=== PATIENT | female | born 1975 | race Native Hawaiian/Other Pacific Islander ===

== ENCOUNTER 2019-09-08 16:36 | Emergency (ER) | payer OTHER ==
[~2019-09-08] VITALS: Ht 147.3 cm; Wt 59.9 kg
[2019-09-08 17:12] LABS: PLATELET COUNT 176 K/uL (152-353)
[2019-09-08 17:19] LABS: POTASSIUM 3.9 mmol/L (3.6-5.2)
[2019-09-08 17:27] LABS: PARTIAL THROMBOPLASTIN TIME 25.9 SECONDS (24.5-33.6)
[2019-09-08 20:48] VITALS: BP 144/89; TEMP 98.3
== END 2019-09-08 20:48 | disposition home or self-care (01) ==
LOC: ED 16:36
PROVIDERS: Emergency Medicine
DX: N92.0 Excessive and frequent menstruation with regular cycle (principal); E11.65 Type 2 diabetes mellitus with hyperglycemia
CPT/HCPCS: 80053; 81000; 81002; 81025; 82962; 85027; 85610; 85730; 96360; 96375; 96376; 99284; J1815

== ENCOUNTER 2019-09-16 11:25 | Outpatient (CLI) | payer OTHER ==
[2019-09-16 12:06] LABS: PLATELET COUNT 223 K/uL (152-353)
[2019-09-16 12:47] LABS: POTASSIUM 4.4 mmol/L (3.6-5.2)
== END 2019-09-16 21:38 | disposition home or self-care (01) ==
LOC: LABW 11:25
PROVIDERS: Family Medicine
DX: E11.9 Type 2 diabetes mellitus without complications (principal); I10 Essential (primary) hypertension; K21.9 Gastro-esophageal reflux disease without esophagitis; F41.8 Other specified anxiety disorders; N28.89 Other specified disorders of kidney and ureter; E78.00 Pure hypercholesterolemia, unspecified; E83.42 Hypomagnesemia
CPT/HCPCS: 36415; 80053; 80061; 81000; 82306; 83036; 83735; 84439; 84443; 84550; 85027

== ENCOUNTER 2019-10-21 11:43 | Outpatient (CLI) | payer OTHER | END 2019-10-21 19:20 | disposition home or self-care (01) | LOC: LAB 11:43 | DX: Z20.828 Contact with and (suspected) exposure to other viral communicable diseases (principal) | CPT/HCPCS: 87635; G2023; U00003 ==

== ENCOUNTER 2019-12-04 14:55 | Emergency (ER) | payer OTHER ==
[~2019-12-04] VITALS: Ht 147.3 cm; Wt 59.9 kg
[2019-12-04 15:05] VITALS: TEMP 99.8
[2019-12-04 16:05] VITALS: BP 121/78
== END 2019-12-04 16:08 | disposition home or self-care (01) ==
LOC: ED 14:55
DX: J06.9 Acute upper respiratory infection, unspecified (principal)
CPT/HCPCS: 87502; 87651; 99283

== ENCOUNTER 2020-01-18 09:02 | Outpatient (CLI) | payer OTHER ==
[2020-01-18 09:50] LABS: PLATELET COUNT 216 K/uL (152-353)
[2020-01-18 10:18] LABS: POTASSIUM 4.5 mmol/L (3.6-5.2)
== END 2020-01-18 20:14 | disposition home or self-care (01) ==
LOC: RAD 09:02
PROVIDERS: Family Medicine
DX: Z01.818 Encounter for other preprocedural examination (principal); E11.9 Type 2 diabetes mellitus without complications; I10 Essential (primary) hypertension; N28.89 Other specified disorders of kidney and ureter; E78.00 Pure hypercholesterolemia, unspecified; E83.42 Hypomagnesemia; K21.9 Gastro-esophageal reflux disease without esophagitis; L30.8 Other specified dermatitis
CPT/HCPCS: 36415; 80053; 80061; 81000; 83036; 83735; 84439; 84443; 85027; 93005

== ENCOUNTER 2020-05-19 10:16 | Outpatient (CLI) | payer OTHER ==
[2020-05-19 10:47] LABS: PLATELET COUNT 239 K/uL (152-353)
[2020-05-19 11:25] LABS: POTASSIUM 3.8 mmol/L (3.6-5.2)
== END 2020-05-19 20:55 | disposition home or self-care (01) ==
LOC: LABW 10:16
PROVIDERS: ATTEND Family Medicine
DX: E11.65 Type 2 diabetes mellitus with hyperglycemia (principal); I10 Essential (primary) hypertension; E78.1 Pure hyperglyceridemia; E83.42 Hypomagnesemia; N28.89 Other specified disorders of kidney and ureter; F41.9 Anxiety disorder, unspecified; K21.9 Gastro-esophageal reflux disease without esophagitis
CPT/HCPCS: 36415; 80053; 80061; 81000; 82306; 83036; 83735; 84439; 84443; 85027

== ENCOUNTER 2020-09-23 18:37 | Emergency (ER) | payer OTHER ==
[~2020-09-23] VITALS: Ht 147.3 cm; Wt 64.0 kg
[2020-09-23 19:44] VITALS: BP 182/88; TEMP 98.3
== END 2020-09-23 19:42 | disposition home or self-care (01) ==
LOC: ED 18:37
DX: L02.11 Cutaneous abscess of neck (principal); S10.86XA Insect bite of other specified part of neck, initial encounter; W57.XXXA Bitten or stung by nonvenomous insect and other nonvenomous arthropods, initial encounter; Y92.89 Other specified places as the place of occurrence of the external cause
CPT/HCPCS: 99283

== ENCOUNTER 2020-10-02 19:13 | Emergency (ER) | payer OTHER ==
[~2020-10-02] VITALS: Ht 147.3 cm; Wt 64.0 kg
[2020-10-02 19:48] LABS: PLATELET COUNT 248 K/uL (152-353)
[2020-10-02 20:00] LABS: POTASSIUM 3.9 mmol/L (3.6-5.2); SODIUM 134 mmol/L (136-145)
[2020-10-02 21:50] VITALS: BP 140/86; TEMP 98
== END 2020-10-02 21:50 | disposition home or self-care (01) ==
LOC: ED 19:13
PROVIDERS: Emergency Medicine Emergency Medical Services
DX: I10 Essential (primary) hypertension (principal); G43.909 Migraine, unspecified, not intractable, without status migrainosus; F17.210 Nicotine dependence, cigarettes, uncomplicated
CPT/HCPCS: 36415; 80048; 83735; 84484; 85027; 93005; 96360; 96365; 99284; J3475

== ENCOUNTER 2020-10-11 10:30 | Outpatient (CLI) | payer OTHER ==
[2020-10-11 11:07] LABS: PLATELET COUNT 207 K/uL (152-353)
[2020-10-11 11:24] LABS: POTASSIUM 4.4 mmol/L (3.6-5.2)
== END 2020-10-11 19:44 | disposition home or self-care (01) ==
LOC: LABW 10:30
PROVIDERS: ATTEND Family Medicine
DX: Z01.818 Encounter for other preprocedural examination (principal); E11.65 Type 2 diabetes mellitus with hyperglycemia; I10 Essential (primary) hypertension
CPT/HCPCS: 36415; 80053; 81000; 82306; 83036; 83735; 84439; 84443; 85027

== ENCOUNTER 2020-10-19 16:37 | Emergency (ER) | payer OTHER ==
[~2020-10-19] VITALS: Ht 147.3 cm; Wt 63.5 kg
[2020-10-19 17:30] LABS: PLATELET COUNT 178 K/uL (152-353)
[2020-10-19 17:38] LABS: POTASSIUM 3.3 mmol/L (3.6-5.2)
[2020-10-19 19:00] VITALS: BP 133/87; TEMP 98.9
== END 2020-10-19 19:00 | disposition home or self-care (01) ==
LOC: ED 16:37
PROVIDERS: Emergency Medicine
DX: E87.6 Hypokalemia (principal); R11.2 Nausea with vomiting, unspecified; R19.7 Diarrhea, unspecified; R10.32 Left lower quadrant pain; E87.1 Hypo-osmolality and hyponatremia
CPT/HCPCS: 80053; 81000; 85027; 87651; 96360; 96372; 99284; J1885

== ENCOUNTER 2020-11-03 13:17 | Outpatient (CLI) | payer OTHER ==
[2020-11-03 14:04] LABS: PLATELET COUNT 181 K/uL (152-353)
[2020-11-03 14:19] LABS: POTASSIUM 4.2 mmol/L (3.6-5.2); SODIUM 134 mmol/L (136-145)
== END 2020-11-03 23:13 | disposition home or self-care (01) ==
LOC: RESP 13:17
PROVIDERS: ATTEND Family Medicine
DX: R07.89 Other chest pain (principal); E11.9 Type 2 diabetes mellitus without complications
CPT/HCPCS: 36415; 80053; 81000; 82550; 82553; 84439; 84443; 84484; 85027; 86140; 93005

== ENCOUNTER 2021-01-19 15:20 | Outpatient (CLI) | payer OTHER | END 2021-01-19 21:05 | disposition home or self-care (01) | LOC: LABW 15:20 | PROVIDERS: ATTEND Nurse Practitioner | DX: R07.89 Other chest pain (principal) | CPT/HCPCS: 36415; 85379 ==

== ENCOUNTER 2021-02-12 09:42 | Outpatient (CLI) | payer OTHER | END 2021-02-12 19:39 | disposition home or self-care (01) | LOC: RESP 09:42 | PROVIDERS: ATTEND Specialist | DX: Z01.810 Encounter for preprocedural cardiovascular examination (principal); R07.89 Other chest pain ==

== ENCOUNTER 2021-03-01 08:00 | Outpatient (CLI) | payer OTHER ==
[~2021-03-01] VITALS: Ht 147.3 cm; Wt 60.3 kg
== END 2021-03-01 18:48 | disposition home or self-care (01) ==
LOC: NM 08:00
PROVIDERS: ATTEND Specialist
DX: Z01.810 Encounter for preprocedural cardiovascular examination (principal); R07.89 Other chest pain
CPT/HCPCS: A9500; J2785

== ENCOUNTER 2021-03-11 17:07 | Emergency (ER) | payer OTHER ==
[~2021-03-11] VITALS: Ht 147.3 cm; Wt 60.3 kg
[2021-03-11 17:44] LABS: PLATELET COUNT 179 K/uL (152-353)
[2021-03-11 17:53] LABS: POTASSIUM 4.7 mmol/L (3.6-5.2)
[2021-03-11 21:55] VITALS: TEMP 97.8
[2021-03-11 22:00] VITALS: BP 116/71
== END 2021-03-11 22:20 | disposition home or self-care (01) ==
LOC: ED 17:07
PROVIDERS: Emergency Medicine Emergency Medical Services
DX: R07.89 Other chest pain (principal); I16.0 Hypertensive urgency
CPT/HCPCS: 80053; 84484; 85027; 93005; 96374; 96375; 99284; J0360; J1885; J2270; J3490

== ENCOUNTER 2021-03-22 12:17 | Outpatient (CLI) | payer OTHER ==
[2021-03-22 12:30] LABS: PLATELET COUNT 210 K/uL (152-353)
[2021-03-22 12:53] LABS: POTASSIUM 3.9 mmol/L (3.6-5.2)
== END 2021-03-22 18:46 | disposition home or self-care (01) ==
LOC: LABW 12:17
PROVIDERS: ATTEND Specialist
DX: Z01.810 Encounter for preprocedural cardiovascular examination (principal); R94.39 Abnormal result of other cardiovascular function study
CPT/HCPCS: 36415; 80048; 85027

== ENCOUNTER 2021-03-27 11:31 | Outpatient (CLI) | payer OTHER | END 2021-03-27 19:15 | disposition home or self-care (01) | LOC: LABW 11:31 | PROVIDERS: ATTEND Specialist | DX: Z01.810 Encounter for preprocedural cardiovascular examination (principal); D72.828 Other elevated white blood cell count; R82.998 Other abnormal findings in urine | CPT/HCPCS: 81000; 87086; 87088 ==

== ENCOUNTER 2021-05-15 14:04 | Emergency (ER) | payer OTHER ==
[~2021-05-15] VITALS: Ht 147.3 cm; Wt 60.3 kg
[2021-05-15 14:07] VITALS: TEMP 98.8
[2021-05-15 14:24] LABS: PLATELET COUNT 182 K/uL (152-353)
[2021-05-15 14:45] LABS: POTASSIUM 3.9 mmol/L (3.6-5.2)
[2021-05-15 14:51] LABS: PARTIAL THROMBOPLASTIN TIME 24.9 SECONDS (24.5-33.6)
[2021-05-15 17:00] VITALS: BP 155/91
== END 2021-05-15 17:00 | disposition home or self-care (01) ==
LOC: ED 14:04
PROVIDERS: Hospitalist
DX: J06.9 Acute upper respiratory infection, unspecified (principal); I16.0 Hypertensive urgency; R09.1 Pleurisy; Z20.822 Contact with and (suspected) exposure to COVID-19
CPT/HCPCS: 80053; 82550; 83880; 84484; 85027; 85610; 85730; 87502; 87635; 87651; 96360; 96375; 99284; J0360; J1100; J1815; J1885; J2405; U0003

== ENCOUNTER 2021-06-22 14:34 | Emergency (ER) | payer OTHER ==
[~2021-06-22] VITALS: Ht 147.3 cm; Wt 60.3 kg
[2021-06-22 16:14] VITALS: BP 157/100; TEMP 99.2
== END 2021-06-22 16:14 | disposition home or self-care (01) ==
LOC: ED 14:34
DX: M25.552 Pain in left hip (principal); M25.562 Pain in left knee; W01.0XXA Fall on same level from slipping, tripping and stumbling without subsequent striking against object, initial encounter; Y92.098 Other place in other non-institutional residence as the place of occurrence of the external cause
CPT/HCPCS: 96372; 99283; J1885

== ENCOUNTER 2021-08-10 17:52 | Emergency (ER) | payer OTHER ==
[~2021-08-10] VITALS: Ht 147.3 cm; Wt 60.3 kg
[2021-08-10 18:16] VITALS: BP 120/82; TEMP 98.7
== END 2021-08-10 18:16 | disposition home or self-care (01) ==
LOC: ED 17:52
DX: K05.10 Chronic gingivitis, plaque induced (principal); F17.210 Nicotine dependence, cigarettes, uncomplicated
CPT/HCPCS: 99282

== ENCOUNTER 2021-08-29 15:38 | Inpatient (IN) | payer OTHER ==
[~2021-08-29] VITALS: Ht 149.9 cm; Wt 62.3 kg
[2021-08-29] VITALS (7 sets, daily range): BP systolic 133–172; BP diastolic 75–98; TEMP 97.1–97.8; Ht 149.9 cm; Wt 62.3 kg
[2021-08-29 17:30] LABS: POTASSIUM 3.7 mmol/L (3.6-5.2)
[2021-08-29 17:50] LABS: PLATELET COUNT 183 K/uL (152-353)
[2021-08-30] VITALS: BP 125/78; TEMP 98.4
[2021-08-30 04:00] VITALS: BP 127/66; TEMP 98.1
[2021-08-30 08:15] LABS: PLATELET COUNT 198 K/uL (152-353)
[2021-08-30 08:21] VITALS: BP 162/84; TEMP 97.8
[2021-08-30 12:25] VITALS: BP 152/80; TEMP 98.7
[2021-08-30] MEDS ORDERED: MAGNESIUM OXID400 M3 PO (13:08)
[2021-08-30] MEDS ORDERED: ZESTRIL40 MG PO (13:10)
[2021-08-30] MEDS ORDERED: LIPITOR20 MG PO (13:10)
[2021-08-30 13:11] LABS: POTASSIUM 3.1 mmol/L (3.6-5.2); SODIUM 126 mmol/L (136-145)
[2021-08-30] MEDS ORDERED: PANTOPRAZOLE SO40 M1 PO (13:11)
[2021-08-30] MEDS ORDERED: FENOFIBRATE160 MG PO (13:12)
[2021-08-30] MEDS ORDERED: MEDROXYPROG150 MG/ML IM (13:13)
[2021-08-30] MEDS ORDERED: TRAZODONE HYDR100 MG PO (13:15)
[2021-08-30] MEDS ORDERED: ALL DAY ALLG10 MG PO (13:17)
[2021-08-30] MEDS ORDERED: DICLOFENAC SODIUM1 % TOP (13:17)
[2021-08-30] MEDS ORDERED: MELOXICAM7.5 MG PO (13:18)
[2021-08-30] MEDS ORDERED: ALBUTEROL108 MCG/AC INH (13:19)
[2021-08-30] MEDS ORDERED: FLUTICASON50 MCG/AC1 INH (13:21)
[2021-08-30] MEDS ORDERED: CLOPIDOGREL75 MG PO (13:21)
[2021-08-30] MEDS ORDERED: AMLODIPINE PO (13:22)
[2021-08-30] MEDS ORDERED: PROPRANOLOL HCL40 MG PO (13:23)
[2021-08-30] MEDS ORDERED: HUMULIN 70/30 K1 INJ SC (13:24)
[2021-08-30] MEDS ORDERED: SERTRALINE HYDR50 MG PO (13:25)
[2021-08-30] MEDS ORDERED: CLONIDINE HYDR0.1 M2 PO (13:27)
[2021-08-30 16:00] VITALS: BP 143/80; TEMP 98.2
[2021-08-30 20:00] VITALS: BP 130/885; TEMP 98.8
[2021-08-31] VITALS (7 sets, daily range): BP systolic 135–159; BP diastolic 79–91; TEMP 97.6–98.3
[2021-08-31 05:24] LABS: POTASSIUM 3.4 mmol/L (3.6-5.2)
[2021-08-31 11:23] LABS: POTASSIUM 3.6 mmol/L (3.6-5.2)
[2021-09-01 02:41] LABS: POTASSIUM 4.2 mmol/L (3.6-5.2)
[2021-09-01 04:00] VITALS: BP 155/86; TEMP 98.2
[2021-09-01 05:20] LABS: POTASSIUM 4.5 mmol/L (3.6-5.2)
[2021-09-01 05:47] LABS: PLATELET COUNT 151 K/uL (152-353)
[2021-09-01 08:00] VITALS: BP 177/106; TEMP 98.6
[2021-09-01 12:00] VITALS: BP 164/88; TEMP 99.2
[2021-09-01 16:00] VITALS: BP 151/90; TEMP 99.1
[2021-09-01 20:00] VITALS: BP 141/83; TEMP 98.8
[2021-09-02] VITALS: BP 116/73; TEMP 97.4
[2021-09-02 04:00] VITALS: BP 125/91; TEMP 98.1
[2021-09-02 05:49] LABS: PLATELET COUNT 148 K/uL (152-353)
[2021-09-02 06:31] LABS: POTASSIUM 4.2 mmol/L (3.6-5.2)
[2021-09-02 08:00] VITALS: BP 170/74; TEMP 98.4
[2021-09-02 12:00] VITALS: BP 145/81; TEMP 98.1
[2021-09-02 16:00] VITALS: BP 136/72; TEMP 98.3
[2021-09-02 20:00] VITALS: BP 150/81; TEMP 98.1
[2021-09-03 00:09] VITALS: BP 110/65; TEMP 97.8
[2021-09-03 04:26] VITALS: BP 146/71; TEMP 98.3
[2021-09-03 07:51] VITALS: BP 157/76; TEMP 98.4
== END 2021-09-03 09:55 | disposition home or self-care (01) | DRG 637 ==
LOC: ED 15:38 → MED/SURG 21:00
PROVIDERS: Internal Medicine; ADMIT Emergency Medicine Emergency Medical Services; ATTEND Family Medicine
DX: E10.10 Type 1 diabetes mellitus with ketoacidosis without coma (principal); K85.80 Other acute pancreatitis without necrosis or infection; E87.1 Hypo-osmolality and hyponatremia; Z79.4 Long term (current) use of insulin; E86.0 Dehydration; E78.49 Other hyperlipidemia; I10 Essential (primary) hypertension; K21.9 Gastro-esophageal reflux disease without esophagitis; R10.9 Unspecified abdominal pain; E87.6 Hypokalemia; E83.51 Hypocalcemia
CPT/HCPCS: 36415; 36600; 80048; 80053; 80061; 81000; 81002; 81025; 82040; 82150; 82308; 82310; 82550; 82805; 82947; 82948; 83690; 83735; 84100; 84132; 84295; 84484; 85027; 87635; 90715; 93005; 96360; 96361; 96365; 96367; 96368; 96372; 96375; 99284; J0610; J1650; J1815; J1885; J1956; J2001; J2270; J2405; J3475; J3490; U0003

== ENCOUNTER 2021-09-28 08:58 | Outpatient (CLI) | payer OTHER ==
[~2021-09-28 08:58] MED LIST: ALBUTEROL108 MCG/AC INH; ALL DAY ALLG10 MG PO; AMLODIPINE PO; CLONIDINE HYDR0.1 M2 PO; CLOPIDOGREL75 MG PO; DICLOFENAC SODIUM1 % TOP; FENOFIBRATE160 MG PO; FLUTICASON50 MCG/AC1 INH; HUMULIN 70/30 K1 INJ SC; LIPITOR20 MG PO; MAGNESIUM OXID400 M3 PO; MEDROXYPROG150 MG/ML IM; MELOXICAM7.5 MG PO; PANTOPRAZOLE SO40 M1 PO; PROPRANOLOL HCL40 MG PO; SERTRALINE HYDR50 MG PO; TRAZODONE HYDR100 MG PO; ZESTRIL40 MG PO
== END 2021-09-28 19:58 | disposition home or self-care (01) ==
LOC: US 08:58
PROVIDERS: ATTEND Family Medicine
DX: R10.9 Unspecified abdominal pain (principal); K21.9 Gastro-esophageal reflux disease without esophagitis; I10 Essential (primary) hypertension; E78.00 Pure hypercholesterolemia, unspecified

== ENCOUNTER 2021-10-11 17:44 | Observation (INO) | payer OTHER ==
[~2021-10-11] VITALS: Ht 149.9 cm; Wt 63.1 kg
[2021-10-11 17:44] VITALS: BP 135/88; TEMP 98
[2021-10-11 18:03] LABS: PLATELET COUNT 216 K/uL (152-353)
[2021-10-11 18:11] LABS: POTASSIUM 3.7 mmol/L (3.6-5.2)
--- NOTE | 2021-10-11 21:30 | NUR ---
PT ADMITTED FROM ER TO ROOM 1106(TO FLOOR AT 2107 VIA STRETCHER) DX ADIS, DEHYDRATION, HYPONATREMIA. PT AWAKE, ALERT, AND ORIENTED X4 LAYIGN IN BED WITH NO S/S OF PAIN OR ACUTE DISTRESS NOTED. SKIN WARM AND DRY, RADIAL AND PEDAL PULSES INTACT/EQUAL, BS+ HYPERACTIVE, LUNGS CLEAR, 22G IV INTACT TO L AC WITH NS INFUSING AT 333ML/HR(BAG FROM ER) WITH NO PROBLMES NOTED TO SITE. PT EDUCATED ABOUT ROOM, CALL LIGHT, HER PLAN OF CARE/MEDICATIONS. QUESTIONS ANSWERED AND PT ACKNOWLEDGES UNDERSTANDING. RAILS UP, BED IN LOW POSITION, CALL LIGHT IN REACH, ENCOURAGED TO CALL NEEDED, PT ACKNOWLEDGES UNDERSTANDING. ADMITTED TO DR. ANSARI.
--- NOTE | 2021-10-11 23:50 | NUR ---
PT RESTING ON L SIDE IN BED WITH EYES CLOSED, AROUSES CIGARETTE FILTER INSPECTOR ENTERS ROOM AND DENIES ANY NEEDS, NO S/S OF PAIN OR DISTRESS NOTED, RESP RATE NONLABORED, ON ROOM AIR, 22G IV INTACT TO L AC WITH NS INFUSING AT 125ML/HR. GAVE NIGHT MEDICATION PER NEW ORDER OF DR. Janis ANSARI NOTED PREVIOUSLY. HELD PROPRANOLOL DUE TO CURRENT PULSE RATE AT THIS TIME 55. WILL MONITOR, RAILS UP, BED IN LOW POSITION, CALL LIGHT IN REACH, ENCOURAGED TO CALL NEEDED.
[2021-10-12] VITALS (8 sets, daily range): BP systolic 106–178; BP diastolic 61–93; TEMP 97.5–98.5; Ht 149.9 cm; Wt 63.1 kg
--- NOTE | 2021-10-12 01:40 | NUR ---
PT RESTING IN BED WITH EYES CLOSED, NO S/S OF PAIN OR DISTRESS NOTED, RESP RATE NONLABORED, ON ROOM AIR, 22G IV INTACT TO L AC WITH NS INFUSING PER ORDER, RAILS UP, BED IN LOW POSITION, CALL LIGHT IN REACH.
--- NOTE | 2021-10-12 03:10 | NUR ---
PT CONTINUES TO REST IN POSITION OF COMFORT IN BED WITH EYES CLOSED, NO S/S OF PAIN OR DISTRESS NOTED, WILL MONITOR, RAILS UP, BED IN LOW POSITION, CALL LIGHT IN REACH.
[2021-10-12 05:31] LABS: PLATELET COUNT 169 K/uL (152-353)
--- NOTE | 2021-10-12 05:42 | NUR ---
PT C/O INTERMITTEN "SHARP" PAIN ACROSS HER LOWER ABD THAT SHE RATES A "10" ON SCALE OF 0-10. GAVE DILAUDID SLOW IVP PRN PER PT REQUEST FOR HER PAIN. PT DENIES ANY N/V OR OTHER PROBLEMS. RESP RATE NONLABORED, ON ROOM AIR, 22G IV INTACT TO L AC WITH NS INFUSING AT 125ML/HR, NO S/S OF ACUTE DISTRESS NOTED. WILL MONITOR CLOSELY, RAILS UP, BED IN LOW POSITION, CALL LIGHT IN REACH, ENCOURAGED TO CALL NEEDED.
[2021-10-12 06:11] LABS: POTASSIUM 4.4 mmol/L (3.6-5.2)
--- NOTE | 2021-10-12 06:15 | NUR ---
PT RESTING WITH EYES CLOSED, AROUSES AND WHEN ASKED STATES HER PAIN HAS DECREASED TO ABOUT A 4 SINCE PRN DILAUDID GIVEN, NO REACTIONS NOTED, WILL MONITOR CLOSELY.
--- NOTE | 2021-10-12 07:20 | NUR ---
PT LAYING IN BED ON LEFT SIDE. NS INFUSING TO 22G IN LAC AT 125ML/HR WITHOUT DIFFICULTY. PT TOLERATING WELL. PT AWAKE, ALERT AND ORIENTED. AM ASSESSMENT COMPLETED AT THIS TIME. S1/S2 HEARD, LUNG SOUNDS CLEAR THROUGH OUT BILAT. POSITIVE BS X4 QUADRANTS. PT C/O TENDERNESS ALL OVER WHEN PALPATED. NO EDEMA NOTED. PT C/O NAUSEA AT THIS TIME. PT IS NPO EXCEPT FOR MEDS.
--- NOTE | 2021-10-12 07:28 | NUR ---
PT GIVEN ZOFRAN 4MG IV PUSH PER MD ORDERS FOR NAUSEA.
--- NOTE | 2021-10-12 09:52 | NUR ---
SPOKE WITH DR. ANSARI REC'D ORDERS TO CONTINUE IV FLUIDS AT 100 ML/HR AND MAY DECREASE DILAUDID TO 1MG IV SLOW PUSH Q4HR PRN PAIN. DR. ANSARI REPORTS SHE WILL BE BY AFTER LUNCH TO SEE PT.
--- NOTE | 2021-10-12 10:32 | NUR ---
PT GIVEN PRN PAIN MEDICATION AT THIS TIME FOR ABDOMINAL PAIN "8" OUT OF 10 PER PT. PT STATES "MY STOMACH STILL HURTS" WHEN ASKING WHERE PT STATES "ALL OVER." PT CONTINUES TO C/O OF NAUSEA AND REPORTS THE MEDICINE EARLIER STILL HAS NOT HELPED. INFORMED HER I WOULD CONTACT DR. ANSARI AND LET HER KNOW. PT VERBALIZES UNDERSTANDING AT THIS TIME. NS INFUSING AT THIS TIME AT NEW RATE OF 100 ML/HR PER MD ORDERS WITHOUT DIFFICULTY.
--- NOTE | 2021-10-12 11:15 | NUR ---
LAVERNE, PCT REPORTS PT'S BP ELEVATED AT 206/107 VIA VITAL SIGN MACHINE. 178/93 MANUAL. SHE ALSO REPORTS PT JUST GOT THROUGH VOMITING.
--- NOTE | 2021-10-12 11:27 | NUR ---
IN TO MEDICATE PT FOR VOMITING AND COVER HER BLOOD SUGAR OF 300 VIA FINGER STICK. PT GIVEN ZOFRAN 4MG IV PUSH AT THIS TIME PER MD ORDERS. REASSESSED PT'S BP MANUAL WITH READING OF 152/68 AT THIS TIME. WILL CONTINUE TO MONITOR PT'S BLOOD PRESSURE.
--- NOTE | 2021-10-12 11:45 | NUR ---
REC'D ORDER TO INCREASE ZOFRAN TO 4MG IV PUSH Q4HR.
--- NOTE | 2021-10-12 12:18 | NUR ---
REC'D ORDERS FROM DR. ANSARI VIA TELEPHONE TO START LEVEMIR 10 UNITS SUBCU BID FIRST DOSE NOW. OBTAIN MRI OF ABDOMEN WITH AND WITHOUT CONTRAST. IF BLOOD SUGAR STARTS TO DROP CHANGE IVF TO D5NS AT 125 ML/HR.
[2021-10-12] MEDS ORDERED: INSU300I SC (12:21)
[2021-10-12] MEDS ORDERED: INSULIN LI100 UNIT/M SC (12:23)
--- NOTE | 2021-10-12 12:28 | NUR ---
Costumed Character Entertainer visited with patient and she says that she is being seen by home health nurses but could not remember who. Costumed Character Entertainer looked back at previous stay and UR had set her up with [facility] per patient request. She will discharge back home under their care.
[2021-10-12] MEDS ORDERED: TRIDERM0.1 % TOP (12:43)
--- NOTE | 2021-10-12 13:20 | NUR ---
PT LAYING IN BED ON LEFTSIDE. NS INFUSIN AT 100 ML/HR. PT REPORTS NAUSEA IMPROVED. PT QUESTIONS IF DR. ANSARI IS COMING BY INFORMED HER THAT SHE WILL BE BY WHEN HER OFFICE CLOSES. PT VERBALIZES UNDERSTANDING AT THIS TIME.
--- NOTE | 2021-10-12 14:50 | NUR ---
PT BACK FROM MRI. MINNA TECHNICAL SERVICE REPRESENTATIVE REPORTS AFTER STARTING MRI PT INFORMED HER SHE DIDN'T WANT TO DO THE MRI AND BROUGHT PT BACK. NOTIFIED DR. ANSARI REC'D ORDERS TO GIVE PT ATIVAN 1MG IV NOW TO OBTAIN MRI. IN TO INFORM PT AND PT NOTED TO BE VOMITING AT THIS TIME AND STATES "I DON'T WANT THE MEDICINE AND I JUST DON'T WANT TO HAVE IT DONE" FURTHER EDUCATED PT THAT SHE HAS HAD CONTINUED ABDOMINAL PAIN FOR SEVERAL WEEKS AND THE US SHE PREVRIOUSLY HAD RECOMMENDS THE MRI. PT THEN STATES "I KNOW I JUST DON'T WANT TO DO IT" DR. ANSARI NOTIFIED AGAIN.
--- NOTE | 2021-10-12 15:13 | NUR ---
PT GIVEN PRN PAIN MEDICATION AND PRN ZOFRAN FOR EMESIS.
--- NOTE | 2021-10-12 16:51 | NUR ---
NOTIFIED DR. ANSARI OF MRI REPORT. REC'D ORDERS TO MAKE SURE ZOFRAN IS GIVEN PRIOR TO EATING. INFORMED HER ZOFRAN HAS ALREADY BEEN GIVEN AND PT HAS A CLEAR LIQUID DIET.
--- NOTE | 2021-10-12 19:31 | NUR ---
PATIENT ALERT AND ORIENTED, DOES NOT COMPLAIN OF ABDOMINAL PAIN, HOWEVER IS TENDER OVER RIGHT UPPER QUADRANT ON PALPATION. DENIES BACK PAIN, OR N/V. IVF OF NORMAL SALINE INFUSING TO RIGHT FOREAM WITH NO SIGN OF INFILTRATE AT SITE. INSTRUCTED PATIENT TO CALL FOR ASSISTANCE, CALL LIGHT WITHIN REACH.
--- NOTE | 2021-10-12 20:55 | NUR ---
PATIENT VOIMITED SMALL AMOUNT OF YELLOW/GREEN THIN EMEMSIS. PATIENT BEGIN TO COMPLAIN OF ABDOMINAL PAIN AFTER VOMITING. ABDOMEN SOFT, NO GUARDING, BOWEL SOUNDS POSTIVE, C/O PAIN IN RIGHT UPPER QUADRANT AND RIGHT GROIN AREA. POSITIVE, C/O PAIN IN RIGHT UPPER QUADRANT AND RIGHT ANAND AREA. MEDICATED WITH ZOFRAN 8MG IV AND DILAUDID 1MG IV GIVEN. INSTRUCTED TO CALL IF NAUSEA OR PAIN IS NOT RELIEVED. CALL LIGHT WITHIN REACH.
--- NOTE | 2021-10-12 21:30 | NUR ---
PATIENT STATES NAUSEA IS GONE, NO MORE VOIMITING AND ABD PAIN RELIEVED. INSTRUCTED TO CALL FOR ANY OTHER EPISODES. CALL LIGHT WITHIN REACH.
[2021-10-13] VITALS: BP 111/73; TEMP 97.8
--- NOTE | 2021-10-13 00:01 | NUR ---
PATIENT RESTING QUIETLY, EYES CLOSED, BLOOD SUGAR OBTAINED, 174. PT DENIES COMPLAINT OF ABDOMINAL PAIN OR NAUSEA. IVF NORMAL SALINE INFUSING TO RIGHT FOREARM @ 100ML/HR. CALL LIGHT WITHIN REACH.
--- NOTE | 2021-10-13 02:15 | NUR ---
PATIENT RESTING QUIETLY, NO FURTHER COMPLAINTS OF ABD PAIN OR N/V. IVF INFUSING TO RIGHT FOREARM NO SIGN OFINFILTRATE SEEN. CALL LIGHT WITHIN REACH.
[2021-10-13 04:00] VITALS: BP 136/78; TEMP 97.9
--- NOTE | 2021-10-13 04:00 | NUR ---
PATIENT COMPLAINING OF ABD PAIN IN RIGHT UPPER QUADRANT AND NAUSEA, REPORTS NO FURTHER VOIMITING. ABD IS SOFT, POSITIVE BOWEL SOUNDS, TENDER OVER RIGHT UPPER QUADRANT, BUT NO GUARDING AND ABD IS NOT RIGID. MEDICATED WITH ZOFRAN 8MG IV AND DILAUDID 1MG IV. INSTRUCTED PATIENT TO CALL IF PAIN OR NAUSEA NOT RELIEVED. CALL LIGHT WITHIN REACH.
--- NOTE | 2021-10-13 04:03 | NUR ---
PATIENT COMPLAINING HER ABDOMEN IS HURTING AGAIN AND SHE FEELS NAUSEA. ABDOMEN IS SOFT, BOWEL SOUNDS ARE PRESENT, IS TENDER TO PALPATION TO RIGHT UPPER QUADRENT. NO VOIMITING. MEDICATED WITH ZOFRAN 8MG IV AND DILAUDID 1MG IV. INSTRUCTED TO CALL NEEDED. CALL LIGHT WITHIN REACH.
--- NOTE | 2021-10-13 06:06 | NUR ---
PATIENT RESTING EYES CLOSED, AWAKENS EASILY, SAYS ABDOMEN PAIN IS NEARLY GONE AND NAUSEA IS GONE TOO. IVF INFUSING WITHOUT SIGN OF INFILTRATE. CALL LIGHT WITHIN REACH.
--- NOTE | 2021-10-13 07:15 | NUR ---
PT LAYING IN BED IN LF AT THIS TIME. NS INFUSING TO 22G IN LFA WITHOUT DIFFICULTY. LAVERNE ESPINAL, PCT OBTAINING AM VITALS AT THIS TIME. AM ASSESSMENT COMPLETED. PT ALERT AND ORIENTED X4. S1/S2 HEARD, LUNGS CLEAR THORUG OUT BILAT. BS HYPOACTIVE X4 QUADRANTS. PT REPORTS TENDERNESS IN RUQ,RLQ, LLQ ON PALPITATION. NO EDEMA NOTED. PT REQUEST PAIN MEDICATION WHEN IT IS TIME FOR IT AGAIN. CALL LIGHT WIHTIN REACH, BED LOW AND LOCKED.
[2021-10-13 08:00] VITALS: BP 142/71; TEMP 98.2
--- NOTE | 2021-10-13 08:19 | NUR ---
PT AM MEDS GIVEN AT THIS TIME ALONG WITH PRN PAIN MEDICATION AND ZOFRAN. PT'S IVF CHANGED TO D5NS AT 125ML/HR PER MD ORDERS. PT'S AM BLOOD SUGAR VIA FINGER STICK 94. PT REPORTS SHE DRANK SOME JUICE AND ATE THE JELLO. PT TOLERATED AM MEDS WELL WITHOUT DIFFICULTY.
[2021-10-13 10:14] LABS: PLATELET COUNT 176 K/uL (152-353)
[2021-10-13 10:28] LABS: POTASSIUM 3.7 mmol/L (3.6-5.2)
--- NOTE | 2021-10-13 10:50 | NUR ---
SPEAKING WITH YUMIKO FROM [facility]. INFORMATION PROVIDED. PCU IS CURRENTLY ON DIVERSION. YUMIKO STATES "IF SHE MAY NEED A PCU BED THAT COULD BE A PROBLEM BUT I SAY WE LET THE PHYSICIANS SPEAK AND LET THEM MAKE THE ULTIMATE DECISION AND WE WILL GO FROM THERE."
--- NOTE | 2021-10-13 10:59 | NUR ---
DR. WILHELM CURRENTLY SPEAKING WITH DR. PERERA FROM [facility] AT THIS TIME.
--- NOTE | 2021-10-13 11:38 | NUR ---
SPOKE WITH ARTIS FROM [facility]. INFORMED HER PT'S FACE SHEET AND H AND P WILL BE FAXED NOW AND ONCE DISCHARGE SUMMARY IS AVAILABLE I WILL FAX IT IN. ARTIS REPORTS SHE IS MAKING A NOTE OF THAT NOW AND THAT WILL BE FINE.
--- NOTE | 2021-10-13 11:42 | NUR ---
SPOKE TO MARQUIS WITH [facility] AND INFORMED OF PENDING TRANSFER TO [facility] ONCE ROOM ASSIGNMENT HAS BEEN GIVEN. MARQUIS STATES "OK WELL THEY'RE OUT RIGHT NOW WE ARE ACTUALLY THE CALL CREW" INFORMED HER THAT WAS FINE I WAS JUST INFORMING THEM.
[2021-10-13 12:00] VITALS: BP 154/82; TEMP 98.4
--- NOTE | 2021-10-13 13:10 | NUR ---
REC'D ROOM ASSIGNMENT FROM [facility] WITH [facility]. PT WILL GO TO ROOM 355 AT [facility] IN [place], [place].
--- NOTE | 2021-10-13 13:11 | NUR ---
REPORT CALLED TO RAFAT ANSARI RN AT [phone].
--- NOTE | 2021-10-13 13:32 | NUR ---
EMS NOTIFIED THAT ROOM ASSIGNMENT HAD BEEN REC'D AT THIS TIME AND PT WAS [facility]
--- NOTE | 2021-10-13 14:00 | NUR ---
PT DISCHARGE VIA EMS STRETCHER FOR TRANSFER TO [facility] IN [place], [place].
--- NOTE | 2021-10-13 14:00 | NUR ---
EMS HERE TO TRANSPORT PT AT THIS TIME.
--- NOTE | 2021-10-16 13:34 | NUR ---
attempted to follow up with patient since her transfer to [facility] from here without success. was able to leave a message for patient to contact back to see how she was and if she had any issues or needs.
== END 2021-10-13 14:04 | disposition short-term general hospital (02) ==
LOC: ED 17:44 → MED/SURG 19:40
PROVIDERS: ADMIT Emergency Medicine; ATTEND Family Medicine
DX: K83.1 Obstruction of bile duct (principal); R11.2 Nausea with vomiting, unspecified; D72.818 Other decreased white blood cell count; E86.0 Dehydration; N17.8 Other acute kidney failure; E11.65 Type 2 diabetes mellitus with hyperglycemia; I10 Essential (primary) hypertension; K83.8 Other specified diseases of biliary tract; E78.49 Other hyperlipidemia
CPT/HCPCS: 36415; 80053; 80307; 81002; 81025; 82150; 82948; 83690; 85027; 87635; 96360; 96361; 96372; 96374; 96375; 99220; 99284; A9576; G0378; J1170; J1815; J2060; J2270; J2405; J3490; U0003

== ENCOUNTER 2021-12-09 18:29 | Emergency (ER) | payer OTHER ==
[~2021-12-09] VITALS: Ht 149.9 cm; Wt 59.0 kg
[~2021-12-09 18:29] MED LIST changes: +INSU300I SC; +INSULIN LI100 UNIT/M SC; +TRIDERM0.1 % TOP
[2021-12-09 19:30] LABS: PLATELET COUNT 205 K/uL (152-353)
[2021-12-09 21:01] VITALS: BP 139/89; TEMP 97.7
== END 2021-12-09 21:01 | disposition home or self-care (01) ==
LOC: ED 18:29
PROVIDERS: Family Medicine
DX: K59.09 Other constipation (principal)
CPT/HCPCS: 36415; 80053; 81002; 82150; 83690; 85007; 85027; 99283

== ENCOUNTER 2022-04-17 13:19 | Emergency (ER) | payer OTHER ==
[~2022-04-17] VITALS: Ht 149.9 cm; Wt 54.4 kg
[2022-04-17 13:30] VITALS: BP 117/71; TEMP 98.3
== END 2022-04-17 15:00 | disposition home or self-care (01) ==
LOC: ED 13:19
DX: S16.1XXA Strain of muscle, fascia and tendon at neck level, initial encounter (principal); S86.812A Strain of other muscle(s) and tendon(s) at lower leg level, left leg, initial encounter; S46.812A Strain of other muscles, fascia and tendons at shoulder and upper arm level, left arm, initial encounter; R51.9 Headache, unspecified; W01.0XXA Fall on same level from slipping, tripping and stumbling without subsequent striking against object, initial encounter; Y92.89 Other specified places as the place of occurrence of the external cause
CPT/HCPCS: 80307; 81025; 99283

== ENCOUNTER 2022-04-24 13:39 | Outpatient (CLI) | payer OTHER | END 2022-04-24 19:34 | disposition home or self-care (01) | LOC: MAMMO 13:39 | PROVIDERS: ATTEND Nurse Practitioner Family | DX: Z12.31 Encounter for screening mammogram for malignant neoplasm of breast (principal) ==

== ENCOUNTER 2022-04-28 14:58 | Emergency (ER) | payer OTHER ==
[~2022-04-28] VITALS: Ht 149.9 cm; Wt 54.4 kg
[2022-04-28 15:00] VITALS: TEMP 97.5
[2022-04-28 15:54] LABS: PLATELET COUNT 272 K/uL (152-353)
[2022-04-28 15:56] LABS: POTASSIUM 5.2 mmol/L (3.6-5.2)
[2022-04-28 17:30] VITALS: BP 114/79
== END 2022-04-28 20:32 | disposition short-term general hospital (02) ==
LOC: ED 14:58
PROVIDERS: Family Medicine
DX: E11.10 Type 2 diabetes mellitus with ketoacidosis without coma (principal); Z79.4 Long term (current) use of insulin; Z51.81 Encounter for therapeutic drug level monitoring; R11.2 Nausea with vomiting, unspecified; D72.828 Other elevated white blood cell count; I10 Essential (primary) hypertension; Z77.22 Contact with and (suspected) exposure to environmental tobacco smoke (acute) (chronic); Z11.52 Encounter for screening for COVID-19
CPT/HCPCS: 36600; 80053; 80061; 80307; 81000; 81002; 82150; 82805; 83690; 85027; 87635; 96361; 96365; 96367; 96375; 99285; J0696; J1815; J2405; U0003

== ENCOUNTER 2022-05-06 12:08 | Outpatient (CLI) | payer OTHER ==
[2022-05-06 12:39] LABS: POTASSIUM 4.8 mmol/L (3.6-5.2)
== END 2022-05-06 19:08 | disposition home or self-care (01) ==
LOC: LABW 12:08
PROVIDERS: ATTEND Family Medicine
DX: E11.65 Type 2 diabetes mellitus with hyperglycemia (principal); E87.6 Hypokalemia
CPT/HCPCS: 36415; 80053

== ENCOUNTER 2022-06-19 09:40 | Outpatient (CLI) | payer OTHER | END 2022-06-19 19:19 | disposition home or self-care (01) | LOC: US 09:40 | PROVIDERS: ATTEND Internal Medicine Gastroenterology | DX: R10.10 Upper abdominal pain, unspecified (principal) ==

== ENCOUNTER 2022-06-19 20:24 | Emergency (ER) | payer OTHER ==
[~2022-06-19] VITALS: Ht 149.9 cm; Wt 68.9 kg
[2022-06-19 20:30] VITALS: TEMP 98.7
[2022-06-19 23:30] VITALS: BP 173/101
== END 2022-06-19 23:30 | disposition home or self-care (01) ==
LOC: ED 20:24
PROC: 0HQFXZZ Repair Right Hand Skin, External Approach (ICD-10-PCS; principal; 2022-06-19)
DX: S61.011A Laceration without foreign body of right thumb without damage to nail, initial encounter (principal); I10 Essential (primary) hypertension; W18.39XA Other fall on same level, initial encounter; Y92.89 Other specified places as the place of occurrence of the external cause
CPT/HCPCS: 96374; 99284; J0360

== ENCOUNTER 2022-06-27 11:38 | Emergency (ER) | payer OTHER ==
[~2022-06-27] VITALS: Ht 149.9 cm; Wt 69.4 kg
[2022-06-27 11:42] VITALS: BP 134/84; TEMP 97.3
== END 2022-06-27 12:02 | disposition home or self-care (01) ==
LOC: ED 11:38
DX: S61.011D Laceration without foreign body of right thumb without damage to nail, subsequent encounter (principal); Z48.02 Encounter for removal of sutures; W18.39XD Other fall on same level, subsequent encounter; Y92.89 Other specified places as the place of occurrence of the external cause

== ENCOUNTER 2022-07-10 18:07 | Emergency (ER) | payer OTHER ==
[~2022-07-10] VITALS: Ht 149.9 cm; Wt 68.9 kg
[2022-07-10 18:21] VITALS: BP 129/90; TEMP 97.4
== END 2022-07-10 19:32 | disposition home or self-care (01) ==
LOC: ED 18:07
PROC: 09C37ZZ Extirpation of Matter from Right External Auditory Canal, Via Natural or Artificial Opening (ICD-10-PCS; principal; 2022-07-10)
DX: T16.1XXA Foreign body in right ear, initial encounter (principal); X58.XXXA Exposure to other specified factors, initial encounter; Y92.89 Other specified places as the place of occurrence of the external cause
CPT/HCPCS: 99283

== ENCOUNTER 2022-08-26 15:11 | Emergency (ER) | payer OTHER ==
[~2022-08-26] VITALS: Ht 149.9 cm; Wt 68.9 kg
[2022-08-26 15:38] VITALS: BP 135/81; TEMP 97.1
[2022-08-26 17:14] LABS: PLATELET COUNT 196 K/uL (152-353)
[2022-08-26 17:20] LABS: POTASSIUM 4.5 mmol/L (3.6-5.2)
== END 2022-08-26 20:10 | disposition home or self-care (01) ==
LOC: ED 15:11
PROVIDERS: Family Medicine
DX: E11.00 Type 2 diabetes mellitus with hyperosmolarity without nonketotic hyperglycemic-hyperosmolar coma (NKHHC) (principal)
CPT/HCPCS: 36600; 80053; 81002; 82805; 85027; 96361; 96374; 99284; J1815; J2405

== ENCOUNTER 2022-09-15 12:47 | Emergency (ER) | payer OTHER ==
[~2022-09-15] VITALS: Ht 149.9 cm; Wt 68.9 kg
[2022-09-15 13:48] LABS: PLATELET COUNT 227 K/uL (152-353); POTASSIUM 4.3 mmol/L (3.6-5.2)
[2022-09-15 16:10] VITALS: BP 164/92; TEMP 98.2
== END 2022-09-15 16:35 | disposition short-term general hospital (02) ==
LOC: ED 12:47
PROVIDERS: Family Medicine
DX: K81.0 Acute cholecystitis (principal); R10.9 Unspecified abdominal pain
CPT/HCPCS: 36415; 80053; 81002; 81025; 83690; 85027; 96361; 96374; 99284

== ENCOUNTER 2022-10-13 15:44 | Emergency (ER) | payer OTHER ==
[~2022-10-13] VITALS: Ht 149.9 cm; Wt 54.4 kg
[2022-10-13 16:07] VITALS: BP 129/76; TEMP 97.2
[2022-10-13 16:49] LABS: PLATELET COUNT 206 K/uL (152-353)
[2022-10-13 17:00] LABS: POTASSIUM 4.7 mmol/L (3.6-5.2)
== END 2022-10-13 17:38 | disposition left against medical advice (07) ==
LOC: ED 15:49
PROVIDERS: Family Medicine
DX: K85.90 Acute pancreatitis without necrosis or infection, unspecified (principal); R73.9 Hyperglycemia, unspecified
CPT/HCPCS: 80053; 83690; 85027; 96360; 96372; 99284; J1815

== ENCOUNTER 2022-11-08 12:06 | Outpatient (CLI) | payer OTHER ==
[2022-11-08 12:58] LABS: PLATELET COUNT 186 K/uL (152-353)
[2022-11-08 13:26] LABS: POTASSIUM 4.3 mmol/L (3.6-5.2)
== END 2022-11-08 20:26 | disposition home or self-care (01) ==
LOC: LABW 12:06
PROVIDERS: ATTEND Surgery
DX: R10.11 Right upper quadrant pain (principal)
CPT/HCPCS: 36415; 80053; 83690; 85027